=== PATIENT | female | born 1970 | race Caucasian/White ===

== ENCOUNTER → 2018-07-01 | Outpatient (CLI) | payer OTHER ==
[~2018-07-01] VITALS: Ht 170.2 cm; Wt 98.8 kg
[~2018-07-01] MED LIST: ASPIRIN 81M81 MG/TA2 PO; CELEXA40 MG PO; CLARITIN 1010 MG/TAB PO; FLEXERIL 1010 MG/TAB PO; FLINTSTONES W/I1 CTB PO; LOTENSIN40 MG PO; LOTREL 10 MG-401 CAP PO; NEXIUM 40MG40 MG PO; NITROSTAT0.4 MG/TAB SL; NORCO 325 MG-51 TAB PO; NORVASC 10MG10 MG PO; PHARMASSURE GA500 MG PO; PROTONIX 40MG T40 MG PO; TYLENOL 325MG325 MG PO; ZYRTEC 10MG10 MG PO
[2018-07-01 08:30] VITALS: BP 146/87; PULSE 86
== END ==
LOC: COL.RAD 08:10
DX: E04.1 Nontoxic single thyroid nodule (principal); N28.1 Cyst of kidney, acquired

== ENCOUNTER 2019-05-01 09:54 | Outpatient (CLI) | payer OTHER ==
[~2019-05-01] VITALS: Ht 170.3 cm; Wt 101.9 kg
[~2019-05-01 09:54] MED LIST changes: +INDERAL 20MG20 MG PO
[2019-05-01] MEDS ORDERED: PRILOTC (10:37)
[2019-05-01] MEDS ORDERED: TURMERIC500 MG PO (10:38)
[2019-05-01] MEDS ORDERED: FISH OIL 500 M1 EAC1 PO (10:39)
[2019-05-01] MEDS ORDERED: VITAMIN D31000 I1 PO (10:39)
[2019-05-01 10:40] VITALS: BP 124/83; PULSE 71; TEMP 98.7
[2019-05-01] MEDS ORDERED: RT ADVAIR HFA 1112 G IH (10:40)
[2019-05-01 11:06] VITALS: BP 124/83; PULSE 71; TEMP 98.7
[2019-05-01 12:09] VITALS: BP 135/90; PULSE 59
--- NOTE | 2019-05-01 12:10 | NUR ---
report received from Landen LUNA. pt is awake and alert resting supine on stretcher. PT has received verbal instructions from bobcat driver/labor rn regarding linq monitor. receipt of dc instructions pending.
--- NOTE | 2019-05-01 13:31 | NUR ---
pt given dc instructions, ambulated with pt to exit with her .
== END 2019-05-01 13:39 | disposition home or self-care (01) ==
LOC: COL.CAR 09:54
DX: R00.1 Bradycardia, unspecified (principal); R00.2 Palpitations; R53.83 Other fatigue; Z88.0 Allergy status to penicillin; Z88.8 Allergy status to other drugs, medicaments and biological substances; Z88.2 Allergy status to sulfonamides; Z88.1 Allergy status to other antibiotic agents; Z88.6 Allergy status to analgesic agent; Z83.3 Family history of diabetes mellitus; Z82.49 Family history of ischemic heart disease and other diseases of the circulatory system
CPT/HCPCS: C1764